=== PATIENT | male | born 1980 | race African-American/Black ===

== ENCOUNTER 2020-08-08 10:15 | Emergency (ER) | payer MEDICAID ==
[~2020-08-08] VITALS: Ht 182.9 cm; Wt 88.5 kg
[2020-08-08 10:21] VITALS: BP 171/80
== END 2020-08-08 11:14 | disposition home or self-care (01) ==
LOC: ED 10:55
DX: J45.40 Moderate persistent asthma, uncomplicated (principal); I10 Essential (primary) hypertension; Z76.0 Encounter for issue of repeat prescription
CPT/HCPCS: 99281

== ENCOUNTER 2020-09-09 14:29 | Emergency (ER) | payer MEDICAID ==
[~2020-09-09] VITALS: Ht 182.9 cm; Wt 87.2 kg
[2020-09-09 15:00] VITALS: BP 133/93
== END 2020-09-09 15:15 | disposition home or self-care (01) ==
LOC: ED 15:06
DX: J45.909 Unspecified asthma, uncomplicated (principal); I10 Essential (primary) hypertension; Z76.0 Encounter for issue of repeat prescription
CPT/HCPCS: 99281